=== PATIENT | female | born 1940 | race Caucasian/White ===

== ENCOUNTER 2017-05-11 06:44 | Day surgery (SDC) | payer MEDICARE ==
[~2017-05-11] VITALS: Ht 170.2 cm; Wt 58.5 kg
[~2017-05-11 06:44] MED LIST: ACETAMINOPHEN 325 MG TAB PO PRN; DEPA250T32 PO; MULT1TAB10 PO; VITA500T PO
[2017-05-11] MEDS ORDERED: OFLOXACIN 0.3 % (OCUFLOX) OPTH SOL 5ML OD ONE (07:00)
[2017-05-11] MEDS ORDERED: CYCLOPENTOLATE 2% OPHTH SOLN 2ML BTL OD ONE (07:00)
[2017-05-11] MEDS ORDERED: TROPICAMIDE 1% OPHTH SOLN 2ML OD ONE (07:00)
[2017-05-11] MEDS ORDERED: BSS with VANC/TOB/EPI for EYE CASES IR ONE (07:00)
[2017-05-11] MEDS ORDERED: LIDOCAINE 3.5 % 1ML OPHTH TOPICAL GEL OU ONE (07:00)
[2017-05-11] MEDS ORDERED: PHENYLEPHRINE 2.5% OPHTH SOL 2ML OD ONE (07:00)
[2017-05-11] MEDS ORDERED: LR 1,000 ML IV ONE (07:15)
[2017-05-11] MEDS ORDERED: MOXIFLOXACIN IN BSS 0.25MG/0.25ML INTRACAMERAL INJ (OR EYE ONLY)(J2280) As Ordered ONE (08:51)
[2017-05-11] MEDS ORDERED: TRIAMCINOLONE PRES FR 40 MG/ML 1ML(TRIESENCE)(OR EYE ONLY)(J3300 PER 1MG) As Ordered ONE (08:51)
[2017-05-11] MEDS ORDERED: LIDOCAINE 1% SDV 5 ML VIAL As Ordered ONE (08:51)
[2017-05-11] MEDS ORDERED: POVIDONE-IODINE 5% OPHTH PREP SOL 30ML As Ordered ONE (08:51)
[2017-05-11] MEDS ORDERED: HEALON DUET (HEALON 10MG/ML 0.55ML & HEALON ENDOCOAT 30MG/ML 0.85ML) As Ordered ONE (08:52)
[2017-05-11] MEDS ORDERED: AcetaZOLAMIDE 500 MG ER CAP PO ONE (09:00)
[2017-05-11] MEDS ORDERED: TRIMETHOBENZAMIDE 300 MG CAP PO PRN (09:00)
[2017-05-11] MEDS ORDERED: MIDAZOLAM INJ 2 MG/2 ML VIAL (J2250) As Ordered ONE (09:10)
[2017-05-11] MEDS ORDERED: fentaNYL 100 MCG/2 ML INJECTION (J3010) As Ordered ONE (09:10)
[2017-05-11 09:50] VITALS: BP 177/83
== END 2017-05-11 09:55 | disposition home or self-care (01) ==
LOC: M SDC 06:44
PROVIDERS: ATTEND Ophthalmology
DX: H26.9 Unspecified cataract (principal); R56.9 Unspecified convulsions; E78.00 Pure hypercholesterolemia, unspecified; I73.9 Peripheral vascular disease, unspecified; I34.8 Other nonrheumatic mitral valve disorders; I35.0 Nonrheumatic aortic (valve) stenosis; I71.6 Thoracoabdominal aortic aneurysm, without rupture; Z79.899 Other long term (current) drug therapy; Z90.710 Acquired absence of both cervix and uterus; Z78.0 Asymptomatic menopausal state
CPT/HCPCS: 66984; J2250; J2280; J3010; J3300; V2632

== ENCOUNTER → 2020-12-04 | Outpatient (CLI) | payer MEDICARE ==
[~2020-12-04] MED LIST changes: -ACETAMINOPHEN 325 MG TAB PO PRN; +VITA-243 PO; -VITA500T PO
--- NOTE | 2020-12-04 16:43 | REP ---
INDICATION: LEFT LEG SWELLING. COMPARISON: None. TECHNIQUE: Multiple ultrasonographic images of the deep venous structures of the bilateral lower extremity were obtained from the inguinal ligament to the ankle. Venous compression techniques, color doppler imaging, and augmentation techniques were also obtained where appropriate. As per the ACR guidelines the anterior tibial vein can not be effectively evaluated. Only compression techniques in the calf on the peroneal and posterior tibial veins was attempted/performed. FINDINGS: There is no abnormal echogenic material seen within any of the visualized deep venous structures that would suggest acute thrombosis. Coaptation is unremarkable throughout. Doppler interrogation shows an expected response to respiratory variability and augmentation in the thigh. Compression techniques in the calf showed no abnormality. The color flow images show what appears to be a normal vascular pattern throughout the thigh. IMPRESSION: There is no ultrasonographic evidence of deep venous thrombosis involving any of the visualized deep venous structures of the bilateral lower extremity as described above. <Electronically signed by Mario Sahni > 12/04/20 [id number]
[2020-12-04 18:29] LABS: BASO % 0.4 % (0.0-1.0); EOS # 0.2 10^3/uL (0.0-0.5); EOS % 3.1 % (0.0-3.0); HEMATOCRIT 41.6 % (36.0-47.0); HEMOGLOBIN 12.9 g/dl (12.0-15.5); LYMPH % 14.4 % (24.0-44.0); MEAN CORPUSCULAR HEMOGLOBIN 30.7 pg (27.0-33.0); MONO # 0.4 10^3/uL (0.0-0.8); MONO % 6.1 % (2.0-8.0); NEUTROPHILS # 5.4 10^3/uL (1.5-8.5); NEUTROPHILS % 75.6 % (36.0-66.0); PLATELET COUNT, AUTOMATED 206 10^3/uL (150-450); WHITE BLOOD COUNT 7.2 10^3/uL (4.0-10.0)
[2020-12-04 18:38] LABS: ALBUMIN 3.8 GM/DL (3.2-5.2); ALT/SGPT 29 U/L (12-78); BILIRUBIN,TOTAL 0.5 MG/DL (0.2-1.0); BLOOD UREA NITROGEN 22 MG/DL (7-18); CALCIUM LEVEL 9.6 MG/DL (8.8-10.2); CARBON DIOXIDE LEVEL 30 MEQ/L (21-32); CHLORIDE LEVEL 110 MEQ/L (98-107); CREATININE FOR GFR 0.78 MG/DL (0.55-1.30); FOLATE > 24.0 NG/ML (>5.4); FREE T4 1.04 NG/DL (0.76-1.46); GLOMERULAR FILTRATION RATE > 60.0 (>39); GLUCOSE, FASTING 81 MG/DL (70-100); POTASSIUM SERUM 4.3 MEQ/L (3.5-5.1); SODIUM LEVEL 145 MEQ/L (136-145); TOTAL PROTEIN 6.7 GM/DL (6.4-8.2); VITAMIN B12 LEVEL 882 PG/ML (247-911)
== END ==
LOC: M LAB 15:52
PROVIDERS: ATTEND Physician Assistant
DX: M79.89 Other specified soft tissue disorders (principal); L97.822 Non-pressure chronic ulcer of other part of left lower leg with fat layer exposed; R01.1 Cardiac murmur, unspecified; E53.8 Deficiency of other specified B group vitamins; R41.3 Other amnesia; I83.028 Varicose veins of left lower extremity with ulcer other part of lower leg

== ENCOUNTER → 2020-12-10 | Outpatient (CLI) | payer MEDICARE ==
--- NOTE | 2020-12-10 16:23 | REP ---
INDICATION: BENIGN PROSTATIC HYPERPLASIA WITH LOWER URINARY TR COMPARISON: None. TECHNIQUE: Left lower extremity arterial ultrasound and Doppler. FINDINGS: All numeric values represent peak systolic velocity in cm/SEC The ankle brachial index was not obtained. DINKEY ENGINE FIRER/FIREMAN: 456.1 monophasic with evidence of stenosis Profunda: 136 monophasic SFA proximal: 75.1 monophasic SFA mid: 34.7 monophasic SFA distal: 21.9 monophasic Popliteal: 12.9 monophasic LAURI proximal: 16.3 monophasic Tibioperoneal trunk: 23.4 monophasic CAR SALESPERSON proximal: 40.5 monophasic CAR SALESPERSON distal: 32.1 monophasic LAURI distal 16.3 monophasic Severe plaque formation was seen from the common femoral artery to the foot. Collateral circulation was seen at the popliteal artery. The patient would not allow for an ankle brachial index today. IMPRESSION: As above <Electronically signed by Mario Sahni > 12/10/20 0476
== END ==
LOC: M RAD 14:39
PROVIDERS: ATTEND Surgery
DX: L97.822 Non-pressure chronic ulcer of other part of left lower leg with fat layer exposed (principal)

== ENCOUNTER → 2020-12-17 | Outpatient (CLI) | payer MEDICARE | LOC: M CARPUL 12:55 | PROVIDERS: ATTEND Physician Assistant | DX: R01.1 Cardiac murmur, unspecified (principal) ==

== ENCOUNTER → 2020-12-23 | Outpatient (POV) | payer MEDICARE ==
[~2020-12-23] VITALS: Ht 170.2 cm; Wt 51.8 kg
[2020-12-23 09:56] VITALS: BP 123/74
--- NOTE | 2020-12-24 14:58 | IRCOV ---
[facility] IR Consult Office Visit IR Consult Office Visit DATE: Dec 23, 2020 REASON FOR CONSULTATION/CHIEF COMPLAINT: Nonhealing left lower extremity ulcer. HISTORY OF PRESENT ILLNESS: 80-year-old nondiabetic, female presents with left lower extremity medial tibial ulcer. She states this started in October 2020. At that time, they saw Dr. Platt, and report that he performed an ultrasound and told her she has bad circulation in her left leg. She was prescribed Silvadene which she used, but the ulcer didn't heal. She then followed up with her PCP Dr. Max's office, who referred her to Dr. Davis for wound care. She is now under the care of Dr. Toribio for her wound and is referred for arterial evaluation. Patient reports she is on her feet all day. She denies intermittent claudication. However she does report left lower extremity rest pain with elevation at night. She does report left lower extremity swelling. No prior amputations, gangrene, arterial thrombosis, arterial intervention and/or stenting in the lower extremities. No chest pain, shortness of breath, orthopnea or paroxysmal nocturnal dyspnea. Patient denies prior heart attack or stroke. She's an ex-smoker and she quit 25 years ago. She is on 81 mg aspirin daily. ALLERGIES: Please see below. HOME MEDICATIONS: Please see below. 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 SOCIAL HISTORY: Ex-smoker. Quit 25 years ago. Denies alcohol or drugs. REVIEW OF SYSTEMS: Otherwise negative. PHYSICAL EXAMINATION: VITAL SIGNS: Please see below. GENERAL APPEARANCE: Appears well. Comfortable at rest. HEENT: No scleral icterus. RESPIRATORY: Symmetric breath sounds. CARDIOVASCULAR: Normal rate. Systolic murmur. ABDOMEN: Soft nontender. EXTREMITIES: Left lower extremity: Ulceration over the medial mid tibia. Lower extremity skin is red, thickened, warm to touch. There is purplish chronic discoloration of the feet. There are spider veins throughout the lower extremity. Femoral pulse 2+ popliteal pulse 1+ AT/ PT negative. Mid medial tibial ulcer nontender, covered with foam. Sensation intact. motor 4 out of 5. edema to the thigh. Right lower extremity: skin is red, thickened, warm to touch. There is purplish chronic discoloration of the feet. There are spider veins throughout the lower extremity. Femoral pulse 2+ popliteal pulse 1+ AT/PT 1+ sensation intact. motor 4 out of 5. edema to the thigh. No ulcers. No gangrene. NEUROLOGICAL: Alert and oriented. PSYCHIATRIC: Appropriate to circumstance. LABORATORY DATA: 12/04/2020 hemoglobin 12.9 hematocrit 41.6 WBC 7.2 platelets 206 sodium 145 potassium 4.3 BUN 22 creatinine 0.78 GFR greater than 60 Imaging: I personally reviewed the left lower extremity arterial ultrasound performed 12/10/2020. There are monophasic waveforms from the left groin down. There is atherosclerotic disease with poor flow in the SFA and popliteal artery and distal parvus tardus flow. ASSESSMENT/PLAN: 80-year-old nondiabetic female presents with nonhealing left lower extremity ulcers and rest pain. She has an abnormal ultrasound of the left lower extremity arterial system. I agree she would benefit from angiography and/or angioplasty and stenting if needed. We discussed the risks and benefits of the procedure and patient agreed to proceed. We'll schedule the patient for left lower extremity angiography and intervention. I will also order a venous reflux study of her left lower extremity to evaluate for any saphenous vein incompetency and resultant venous hypertension I spent 30 minutes reviewing patient's records, imaging and in consultation with the patient. Thank you for this referral. Cc Dr. Toribio CC Renee GIBSON Allergies Coded Allergies: No Known Allergies (Unverified , 05/11/17) Home Medications Scheduled Ascorbic Acid (Vitamin C), 500 MG PO DAILY, (Reported) Divalproex Sodium (Depakote), 250 MG PO BID, (Reported) Multivitamins (Multivitamin Adults), 1 TAB PO DAILY, (Reported) VS, I&O, 24H, Fishbone Vital Signs/I&O Vital Signs Date Time Temp Pulse Resp B/P (MAP) Pulse Ox O2 Delivery O2 Flow Rate FiO2 12/23/20 09:56 97.3 74 18 123/74 (90) 98 Room Air BELLE MURPHY MD Dec 24, 2020 14:58
== END ==
LOC: M IRPOV 09:49
PROVIDERS: ATTEND Radiology Diagnostic Radiology
DX: I70.222 Atherosclerosis of native arteries of extremities with rest pain, left leg (principal); L97.529 Non-pressure chronic ulcer of other part of left foot with unspecified severity; E53.8 Deficiency of other specified B group vitamins; R41.81 Age-related cognitive decline; Z87.891 Personal history of nicotine dependence; Z90.710 Acquired absence of both cervix and uterus

== ENCOUNTER → 2021-01-07 | Outpatient (CLI) | payer MEDICARE ==
[~2021-01-07] MED LIST changes: +ASPI81CH33 PO; +ISOVUE-300 61% 50ML VIAL As Ordered ONE; +LIDOCAINE 1% MDV 20ML VIAL As Ordered ONE; +MIDAZOLAM INJ 2MG/2ML VIAL (J2250 PER 1MG) As Ordered ONE; +NS 1,000 ML IV SCH; +diphenhydrAMINE 50MG/ML VIAL (J1200) As Ordered ONE; +fentaNYL 100 MCG/2 ML INJECTION (J3010) As Ordered ONE
[2021-01-07 15:43] LABS: HEMATOCRIT 41.5 % (36.0-47.0); HEMOGLOBIN 13.5 g/dl (12.0-15.5); MEAN CORPUSCULAR HEMOGLOBIN 31.6 pg (27.0-33.0); MEAN CORPUSCULAR HGB CONC 32.5 g/dl (32.0-36.5); MEAN CORPUSCULAR VOLUME 97.2 fl (80.0-96.0); PLATELET COUNT, AUTOMATED 179 10^3/uL (150-450); RED BLOOD COUNT 4.27 10^6/uL (4.00-5.40); WHITE BLOOD COUNT 5.3 10^3/uL (4.0-10.0)
[2021-01-07 16:04] LABS: BLOOD UREA NITROGEN 22 MG/DL (7-18); CARBON DIOXIDE LEVEL 28 MEQ/L (21-32); CHLORIDE LEVEL 109 MEQ/L (98-107); CREATININE FOR GFR 0.72 MG/DL (0.55-1.30); GLOMERULAR FILTRATION RATE > 60.0 (>39); GLUCOSE, FASTING 81 MG/DL (70-100); POTASSIUM SERUM 3.9 MEQ/L (3.5-5.1); SODIUM LEVEL 139 MEQ/L (136-145)
[2021-01-07 16:25] VITALS: BP 143/81
--- NOTE | 2021-01-08 08:24 | IRHP ---
[facility] IR Pre-Procedure H & P General Date of Service: Jan 07, 2021 Procedure: Same Day Surgery Interval History and Physical I have seen the patient and reviewed last H & P performed within 30 days. There is no significant interval change. History of Present Illness Chief Complaint The patient is a 80-year-old female admitted with a reason for visit of PAD. PRE-PROCEDURE DIAGNOSIS: PAD HEART: Normal rate. LUNGS: Normal breathing at rest. ASA Classification ASA Classification: III-Severe systemic dis. Mallampati Score: II NPO: Yes Problems with prior sedation: No Obstructive Sleep Apnea: No Plan moderate sedation Allergies Coded Allergies: No Known Allergies (Unverified , 05/11/17) Home Medications Scheduled Ascorbic Acid (Vitamin C), 500 MG PO DAILY, (Reported) Aspirin (Aspirin), 1 TAB PO DAILY, (Reported) Multivitamins (Multivitamin Adults), 1 TAB PO DAILY, (Reported) Discontinued Medications Divalproex Sodium (Depakote), 250 MG PO BID, (Reported) Discontinued Reason: Pt states not taking VS, I&O, 24H, Fishbone Vital Signs/I&O Vital Signs Date Time Temp Pulse Resp B/P (MAP) Pulse Ox O2 Delivery O2 Flow Rate FiO2 01/07/21 16:25 75 18 100 Room Air 01/07/21 12:40 2.0 01/07/21 10:08 97.8 Laboratory Data 24H LABS Laboratory Tests 2 01/07/21 15:27: Nucleated Red Blood Cells % (auto) 0.0, Anion Gap 2L, Glomerular Filtration Rate > 60.0, Calcium Level 9.0 CBC/BMP Laboratory Tests 01/07/21 15:27 BELLE MURPHY MD Jan 08, 2021 08:24
--- NOTE | 2021-01-08 11:53 | IRPON ---
IR Postoperative Note Date Of Procedure: Jan 07, 2021 Time Of Procedure: 16:00 IR Postoperative Note IR Left leg angiogram. IR Left below-knee runoff arteriogram. IR Ultrasound-guided right common femoral artery access. IR Moderate sedation. Clinical Information:Nonhealing left lower extremity wound. Left lower extremity rest pain. Physician: Dr. Lainez. Procedure: The patient was advised of the benefits, risks, and alternatives of the procedure and informed consent was obtained. A time out was performed with verification of the patient's name, MRN, site of procedure, and type of procedure to be performed. The patient was positioned in the supine position on the angiographic table. The site was prepped and draped in the usual sterile fashion. Moderate sedation was performed by the physician including the presence of an independent trained RN, who assisted in monitoring the patient's level of consci ousness and physiological status. Following the administration of fentanyl and Versed, the physician spent 90 minutes of continuous [id number] time with the patient. A health administration teacher radiograph reveals calcified tortuous vasculature. Ultrasound of the right groin demonstrates patent, calcified, right common femoral artery. Lidocaine was used for local anesthesia. The right common femoral artery was accessed, under ultrasound guidance with a microintroducer set. A short 0.018" [place] wire was inserted under fluoroscopic guidance and the needle was exchanged for a 4 Fr microintroducer sheath. The guidewire and dilator were removed, a 0.035" Bentson wire was advanced under fluoroscopy guidance and placed into the abdominal aorta. A 6 Fr sheath was placed over the wire. An Omni flush catheter was advanced over the wire, under fluoroscopy guidance and used to catheterize the infrarenal abdominal aorta. A pelvic arteriogram was performed. This demonstrates extreme tortuosity of the infrarenal abdominal aorta and aortic bifurcation, bilateral common iliac and external iliac arteries. Patent bilateral common iliac, internal iliac and external iliac arteries. There is plaque in the left common femoral artery. Patent bilateral superficial femoral and profunda femoris. Angiography further down the left leg was performed. This demonstrates patent proximal and mid superficial femoral artery. Complete occlusion of the distal superficial femoral artery, proximal and mid popliteal artery. Numerous collaterals around the knee reconstitute the distal popliteal artery. Below-knee runoff arteriogram was then performed and this demonstrates patent tibia peroneal trunk, posterior tibial artery and peroneal artery coursing into the left foot. This multifocal severe stenosis in the history of tibial artery and peroneal artery. The anterior tibial artery is patent proximally however there is multifocal long segment stenosis in the mid and distal left anterior tibial artery. There is distal reconstitution of dorsalis pedis via history tibial branches. Very little contribution to the left foot from the anterior tibial artery. The catheter, wire and sheath were removed. A 6 Croat[place] Mynx device was used to close the right groin arteriotomy. Pressure held and hemostasis achieved. A st erile dressing was applied to the site. The patient tolerated the procedure well and was returned to the PRU in stable condition. EBL: < 5 mL. Complications:None. Impression: 1. Left leg angiogram demonstrates extreme tortuosity of the aortic bifurcation, bilateral common iliac and external iliac arteries. 2. Patent pelvic inflow to the left lower extremity. 3. Complete occlusion of the distal SFA and popliteal artery which will require recanalization and stenting behind the knee. Stenting behind the knee does run a risk of stent fracture, therefore there is a certain supera stent which is preferred for placement behind the knee. This will be special ordered for the patient. 4. Below-knee arterial runoff demonstrates multifocal severe stenosis in the posterior tibial artery, peroneal artery and occlusion of the mid and distal anterior tibial artery. 5. Patient will be brought back for ipsilateral antegrade access, distal SFA/ popliteal recanalization and popliteal artery stenting. 6. After that, patient will need further intervention with below-knee posterior tibial artery and anterior tibial artery angioplasty. Thank you for this referral. Cc BELLE Mendoza MD Jan 08, 2021 11:53
== END ==
LOC: M IRPRO 09:18
PROVIDERS: ATTEND Radiology Diagnostic Radiology
DX: I70.249 Atherosclerosis of native arteries of left leg with ulceration of unspecified site (principal); I70.222 Atherosclerosis of native arteries of extremities with rest pain, left leg; I70.92 Chronic total occlusion of artery of the extremities; L97.829 Non-pressure chronic ulcer of other part of left lower leg with unspecified severity; I77.1 Stricture of artery; E53.8 Deficiency of other specified B group vitamins; Z79.82 Long term (current) use of aspirin; Z87.891 Personal history of nicotine dependence
CPT/HCPCS: 36200; 36415; 75630; 80048; 85027; 99152; 99153; C1760; C1769; C1887; C1894; J1644; J2250; J3010; Q9967

== ENCOUNTER → 2021-01-26 | Outpatient (CLI) | payer MEDICARE ==
[~2021-01-26] MED LIST changes: -ISOVUE-300 61% 50ML VIAL As Ordered ONE; -LIDOCAINE 1% MDV 20ML VIAL As Ordered ONE; -MIDAZOLAM INJ 2MG/2ML VIAL (J2250 PER 1MG) As Ordered ONE; -NS 1,000 ML IV SCH; -diphenhydrAMINE 50MG/ML VIAL (J1200) As Ordered ONE; -fentaNYL 100 MCG/2 ML INJECTION (J3010) As Ordered ONE
--- NOTE | 2021-01-26 12:28 | REP ---
INDICATION: VENOUS HTN COMPARISON: None. TECHNIQUE: Real time compression and duplex Doppler interrogation of the left lower extremity deep venous system is performed, including the right common femoral vein.Compression of the left peroneal and posterior tibial veins is performed. Evaluation for venous reflux is performed. FINDINGS: The left common femoral, superficial femoral and popliteal veins are fully compressible with transducer pressure and demonstrate normal spontaneous and phasic flow, without evidence of deep venous thrombosis.The right common femoral vein demonstrates no thrombus.The left peroneal and posterior tibial veins could not be visualized due to edema. Evaluation for venous reflux is performed with the bed tipped, the patient cannot stand. The patient has had a prior resection of the left greater saphenous vein. Lesser saphenous vein does demonstrate reflux for a duration of 2.6 seconds, AP diameter is 4 mm. There is no reflux in any portion of the deep vein system. IMPRESSION: No evidence of deep venous thrombosis of the left lower extremity femoral popliteal venous status post resection left greater saphenous vein 1974. There is reflux in the lesser saphenous vein. <Electronically signed by Roger Cronin > 01/26/21 0570
== END ==
LOC: M RAD 11:15
PROVIDERS: ATTEND Radiology Diagnostic Radiology
DX: I87.309 Chronic venous hypertension (idiopathic) without complications of unspecified lower extremity (principal); I87.2 Venous insufficiency (chronic) (peripheral); Z86.711 Personal history of pulmonary embolism

== ENCOUNTER → 2021-02-03 | Outpatient (POV) | payer MEDICARE ==
[~2021-02-03] VITALS: Ht 170.2 cm; Wt 51.8 kg
[2021-02-03 09:50] VITALS: BP 122/59
--- NOTE | 2021-02-05 10:29 | IRPN ---
[facility] IR Progress Note IR Progress Note DATE: Feb 03, 2021 FOLLOW-UP: Patient is status post left lower extremity distal SFA and proximal popliteal artery recanalization with angioplasty. Patient states she is doing well, after the procedure. No pain or swelling at the groin access site. She was started on aspirin and Plavix after the procedure. Patient's daughter describes, increased bruising of the arms on this dual regimen. She also describes, that when she tried to quickly sit down on the toilet the other night, she bruised her left buttock. Patient continues with wound care. She denies rest pain at night. ON EXAMINATION: Groin access site healed. No bruising, no mass, no hematoma. Left lower extremity warm, pink and well perfused. There are bilateral lower extremity bulging varicose veins. Bilateral lower extremity edema. Increased bruising on bilateral arms. Bruising at the left buttock from recent trauma. Patient weightbearing and moving all 4 limbs. Imaging: I personally reviewed the ultrasound lower extremity venous reflux study performed 01/26/2021. This does demonstrate left lesser saphenous vein reflux. Patient had prior left greater saphenous vein stripping. IMPRESSION: Doing well status post left lower extremity angiography, left distal SFA and popliteal artery recanalization with improvement of flow to the left foot. Patient does have left lesser saphenous vein reflux and this may be contributing to her ulcer and leg swelling. We discussed that, if her wound persists after several weeks, we may consider left lesser saphenous vein EVLT. Patient will touch base with us, regarding this. Given her increase arm bruising on the dual aspirin and Plavix therapy, my suggestion at present would be to take Plavix on Mondays, Wednesdays and Fridays. If patient continues to get bruising or and/or bleeding, patient may stop Plavix. I discussed this with her daughter in detail. Thank you for this referral. Cc Dr. Toribio Allergies Coded Allergies: No Known Allergies (Unverified , 05/11/17) VS,Fishbone, I+O VS, Fishbone, I+O Vital Signs Date Time Temp Pulse Resp B/P (MAP) Pulse Ox O2 Delivery O2 Flow Rate FiO2 02/03/21 09:50 96.3 77 18 122/59 (80) 98 Room Air BELLE MURPHY MD Feb 05, 2021 10:29
== END ==
LOC: M IRPOV 09:37
PROVIDERS: ATTEND Radiology Diagnostic Radiology
DX: Z48.812 Encounter for surgical aftercare following surgery on the circulatory system (principal); I70.202 Unspecified atherosclerosis of native arteries of extremities, left leg; R60.0 Localized edema

== ENCOUNTER 2021-02-27 08:15 | Emergency (ER) | payer MEDICARE ==
[~2021-02-27] VITALS: Ht 167.6 cm; Wt 51.8 kg
[2021-02-27 08:23] VITALS: BP 165/92
--- NOTE | 2021-02-27 09:01 | REP ---
INDICATION: leg edema eval for pulm edema. COMPARISON: None. TECHNIQUE: Single portable AP view of the chest was performed. FINDINGS: There is no acute infiltrate or pulmonary edema. Lungs are clear. The cardiac silhouette is mildly prominent and unchanged. The mediastinal silhouette is unremarkable. There is slight elevation of the left hemidiaphragm. The visualized osseous structures are intact. IMPRESSION: No acute pulmonary disease. <Electronically signed by Roger Cronin > 02/27/21 0815
[2021-02-27 09:08] LABS: BASO % 0.4 % (0.0-1.0); EOS # 0.1 10^3/uL (0.0-0.5); EOS % 1.9 % (0.0-3.0); HEMATOCRIT 41.9 % (36.0-47.0); HEMOGLOBIN 13.2 g/dl (12.0-15.5); LYMPH # 1.1 10^3/uL (1.5-5.0); LYMPH % 16.4 % (24.0-44.0); MEAN CORPUSCULAR HEMOGLOBIN 30.7 pg (27.0-33.0); MEAN CORPUSCULAR HGB CONC 31.5 g/dl (32.0-36.5); MEAN CORPUSCULAR VOLUME 97.4 fl (80.0-96.0); MONO # 0.4 10^3/uL (0.0-0.8); MONO % 6.5 % (2.0-8.0); NEUTROPHILS % 74.4 % (36.0-66.0); PLATELET COUNT, AUTOMATED 234 10^3/uL (150-450); WHITE BLOOD COUNT 6.8 10^3/uL (4.0-10.0)
--- NOTE | 2021-02-27 09:36 | REP ---
INDICATION: LLE edema r/o dvt. COMPARISON: Comparison prior study January 26, 2021. TECHNIQUE: Left {lower extremity duplex venous scanning is performed from the groin to the ankle level. FINDINGS: The deep veins are anechoic and fully compressible from the groin to the popliteal fossa in the left lower extremity. Color flow imaging is homogeneous. Spectral Doppler interrogation demonstrates intact respiratory variation in flow and normal manual augmentation of flow. There is no evidence of deep vein thrombosis above the knee. There is no evidence of DVT in the visualized calf veins. The distal calf veins could not be seen due to a wound. There is a Trimble's cyst in the posterior popliteal soft tissues measuring 2.2 cm in greatest diameter. Doppler interrogation of the contralateral common femoral vein shows normal symmetric respiratory phasicity. IMPRESSION: No evidence of DVT in the left lower extremity femoropopliteal veins. No DVT in the visible portions of the calf veins. <Electronically signed by Patrice Jasso > 02/27/21 0933
[2021-02-27 11:15] LABS: ALBUMIN 3.4 GM/DL (3.2-5.2); ALT/SGPT 21 U/L (12-78); BILIRUBIN,DIRECT 0.1 MG/DL (0.0-0.2); BILIRUBIN,TOTAL 0.6 MG/DL (0.2-1.0); BLOOD UREA NITROGEN 18 MG/DL (7-18); CALCIUM LEVEL 9.2 MG/DL (8.8-10.2); CARBON DIOXIDE LEVEL 31 MEQ/L (21-32); CHLORIDE LEVEL 105 MEQ/L (98-107); CPK CREATINE PHOSPHOKINASE 117 U/L (26-192); CREATININE FOR GFR 0.52 MG/DL (0.55-1.30); FREE T4 1.01 NG/DL (0.76-1.46); GLOMERULAR FILTRATION RATE > 60.0 (>39); GLUCOSE, FASTING 83 MG/DL (70-100); MB/CK RELATIVE INDEX 2.56 (< OR =4); NT-PRO BNP 603 PG/ML (<450); POTASSIUM SERUM 5.5 MEQ/L (3.5-5.1); SODIUM LEVEL 136 MEQ/L (136-145); TOTAL PROTEIN 6.8 GM/DL (6.4-8.2); TROPONIN I < 0.02 NG/ML (< 0.10)
--- NOTE | 2021-02-27 11:42 | ECGEPIP ---
[facility] - ED Test Date: 2021-02-27 Pat Name: ABILIO MOORE Department: Room: - Gender: Female Career Technical Counselor: MARCO : 1940 Requested By: JOHNNY Mcmillan Order Number: [id number] Reading MD: Miguelina Nogueira Measurements Intervals [place] Rate: 63 P: 3 SD: 170 QRS: 78 QRSD: 158 T: 58 QT: 460 QTc: 470 Interpretive Statements Normal sinus rhythm Left atrial enlargement Right bundle branch block Anteroseptal infarct , age undetermined, clinical correlation no prior Electronically Signed on 02-27-2021 11:42:45 EDT by Miguelina Nogueira
== END 2021-02-27 12:08 | disposition home or self-care (01) ==
LOC: M ED 08:15
DX: M71.22 Synovial cyst of popliteal space [Baker], left knee (principal); R22.42 Localized swelling, mass and lump, left lower limb; R41.3 Other amnesia; D51.9 Vitamin B12 deficiency anemia, unspecified; Z79.82 Long term (current) use of aspirin; Z87.891 Personal history of nicotine dependence; Z87.2 Personal history of diseases of the skin and subcutaneous tissue

== ENCOUNTER → 2021-03-17 | Outpatient (POV) | payer MEDICARE ==
[~2021-03-17] VITALS: Ht 167.6 cm; Wt 53.6 kg
[2021-03-17 08:50] VITALS: BP 135/91
--- NOTE | 2021-03-18 11:35 | IRPN ---
[facility] IR Progress Note IR Progress Note DATE: Mar 17, 2021 FOLLOW-UP: Patient with known arterial disease and lesser saphenous venous reflux, presents with worsening left lower extremity, wound located on her otero. This is associated with left lower extremity swelling and heaviness. She recently underwent left lower extremity angiography with me, where she had popliteal artery recanalization and revascularization. She remains on baby asp irin. Her Plavix was stopped due to extreme bruising. ON EXAMINATION: Left lower extremity: edema to the thigh. Skin stigmata and changes of venous hypertension. Nontender wound on the mid left lower extremity otero. Left lower extremity warm to touch. Color otherwise normal. DP/PT 1+. Popliteal 1+. Motor and sensation intact. Right lower extremity: Color and temperature normal. No edema. No ulcer. Imaging: I personally reviewed her left lower extremity venous reflux study performed 01/26/2021. There is dilated left lesser saphenous vein with greater than 0.5 seconds of reflux, associated with varicosities along the left lower extremity. IMPRESSION: 80-year-old female with both arterial and venous disease, now status post left lower extremity angiography and popliteal artery recanalization. Her foot examination today supports successful arterial revascularization and continued patency. Her clinical examination and ulcer distribution, now suggest to me that the lesser saphenous vein reflux is contributing to her nonhealing. We discussed the risks and benefits of EVLT therapy and patient is willing to proceed. We have scheduled the patient for left lower extremity LSV EVLT. Thank you for this referral. Cc Elly Reyes PA-C Allergies Coded Allergies: No Known Allergies (Unverified , 05/11/17) VS,Fishbone, I+O VS, Fishbone, I+O Vital Signs Date Time Temp Pulse Resp B/P (MAP) Pulse Ox O2 Delivery O2 Flow Rate FiO2 03/17/21 08:50 97.4 68 20 135/91 (106) 100 Room Air BELLE MURPHY MD Mar 18, 2021 11:35
== END ==
LOC: M IRPOV 08:44
PROVIDERS: ATTEND Radiology Diagnostic Radiology
DX: I70.248 Atherosclerosis of native arteries of left leg with ulceration of other part of lower leg (principal); L97.829 Non-pressure chronic ulcer of other part of left lower leg with unspecified severity; I87.2 Venous insufficiency (chronic) (peripheral)

== ENCOUNTER → 2021-03-26 | Outpatient (CLI) | payer MEDICARE ==
[~2021-03-26] MED LIST changes: +LIDOCAINE 1% MDV 20ML VIAL As Ordered ONE; +LIDOCAINE 2% MDV 20ML VIAL As Ordered ONE; +MIDAZOLAM INJ 2MG/2ML VIAL (J2250 PER 1MG) As Ordered ONE; +NS 1,000 ML IV SCH; +PROMETHAZINE INJ 25 MG/ML VIAL (J2550) As Ordered ONE; +diphenhydrAMINE 50MG/ML VIAL (J1200) As Ordered ONE; +fentaNYL 100 MCG/2 ML INJECTION (J3010) As Ordered ONE
--- NOTE | 2021-03-26 14:13 | IRHP ---
[facility] IR Pre-Procedure H & P General Date of Service: Mar 26, 2021 Procedure: Same Day Surgery Interval History and Physical I have seen the patient and reviewed last H & P performed within 30 days. There is no significant interval change. History of Present Illness Chief Complaint The patient is a 80-year-old female admitted with a reason for visit of Lt Leg Venous Ulcer. PRE-PROCEDURE DIAGNOSIS: Left leg venous ulcer HEART: Normal rate. LUNGS: Normal breathing at rest. ASA Classification ASA Classification: III-Severe systemic dis. Mallampati Score: II NPO: Yes Problems with prior sedation: No Obstructive Sleep Apnea: No Plan moderate sedation Allergies Coded Allergies: No Known Allergies (Unverified , 05/11/17) Home Medications Scheduled Aspirin (Aspirin), 1 TAB PO DAILY, (Reported) Multivitamins (Multivitamin Adults), 1 TAB PO DAILY, (Reported) VS, I&O, 24H, Fishbone Vital Signs/I&O Vital Signs Date Time Temp Pulse Resp B/P (MAP) Pulse Ox O2 Delivery O2 Flow Rate FiO2 03/26/21 13:55 60 18 100 Nasal Cannula 2.0 03/26/21 12:30 97.9 BELLE MURPHY MD Mar 26, 2021 14:13
--- NOTE | 2021-03-26 15:28 | IRPON ---
IR Postoperative Note Date Of Procedure: Mar 26, 2021 Time Of Procedure: 15:25 IR Postoperative Note IR Endovenous laser treatment for leg varicose vein. IR Ultrasound of the left leg. IR Tumescent anesthesia under ultrasound guidance. IR Moderate sedation. Clinical information: Left lower extremity nonhealing venous ulcer. Incompetent left lesser saphenous vein with greater than 0.5 seconds of reflux. Physician: Dr. Lainez. Procedure: The patient was advised of the benefits, risks and alternatives of the procedure and informed consent was obtained. The time-out was performed with verification of the patient's name, MRN, site of procedure and type of procedure to be performed. The patient was positioned in the supine position on the table. The site was prepped and draped in the usual sterile fashion. Moderate sedation was performed by the physician including the presence of an independent trained RN who assisted in monitoring the patient's level of consciousness and physiologic status. Following the administration of fentanyl and Versed , the physician spent 60 minutes of continuous face to face time with the patient. Ultrasound of the left lower extremity demonstrates dilated lesser saphenous vein with greater than 0.5 seconds reflux. The access site was identified with ultrasound and anesthetized with lidocaine. The left lesser saphenous vein was accessed under ultrasound guidance at the ankle, using a micro introducer needle. An 018 cope wire was advanced into the vein. Incision at the access site was made using a scalpel. The needle was removed and an access catheter was advanced over the wire under ultrasound guidance to > 2.5 centimeters from the popliteal junction. The wire was removed and the laser fiber was advanced through the catheter under ultrasound guidance and positioned with the tip located 2.5 cm from the popliteal junction. Tumescent anesthesia was then injected under ultrasound guidance along the entire length of the vein to be treated. Repeat ultrasound of the popliteal junction was used to confirm positioning of the tip of the laser back greater than 2.5 cm from junction. The patient was positioned in Trendelenburg. The laser was then activated and under ultrasound guidance used to laser the Left lesser saphenous vein back to the access point. Simultaneous manual compression was applied to the treated vein. Treatment: Wattage: 7. Time: 101 seconds. Pullback rate 1 cm every 7 seconds. Total Energy deposited 710 joules. Treatment 50 joules per centimeter of vein. The fiber, catheter and sheath were removed, pressure held and hemostasis achieved. A sterile dressing was applied to the site. Compression dressing was then applied to the leg, from ankle to groin. The patient tolerated the procedure well and was returned to the PRU in stable condition. EBL: < 5 ml. Complications: None. Impression: 1. Ultrasound demonstrates dilated left lesser saphenous vein with greater than 0.5 seconds reflux. 2. Successful left lesser saphenous vein ablation with laser. 3. Compression dressing applied from ankle to groin. Patient to return in 1 week for follow up ultrasound at which time the compression dressing will be switched to stockings. Thank you this referral. Cc SHANELL Ponce SIMA MD Mar 26, 2021 15:28
[2021-03-26 16:30] VITALS: BP 168/88
== END ==
LOC: M IRPRO 12:06
PROVIDERS: ATTEND Radiology Diagnostic Radiology
DX: I87.312 Chronic venous hypertension (idiopathic) with ulcer of left lower extremity (principal); L97.929 Non-pressure chronic ulcer of unspecified part of left lower leg with unspecified severity; Z79.82 Long term (current) use of aspirin
CPT/HCPCS: 36465; 36478; 76940; 99152; 99153; J2250; J3010

== ENCOUNTER → 2021-04-03 | Outpatient (CLI) | payer MEDICARE ==
[~2021-04-03] MED LIST changes: -LIDOCAINE 1% MDV 20ML VIAL As Ordered ONE; -LIDOCAINE 2% MDV 20ML VIAL As Ordered ONE; -MIDAZOLAM INJ 2MG/2ML VIAL (J2250 PER 1MG) As Ordered ONE; -NS 1,000 ML IV SCH; -PROMETHAZINE INJ 25 MG/ML VIAL (J2550) As Ordered ONE; -diphenhydrAMINE 50MG/ML VIAL (J1200) As Ordered ONE; -fentaNYL 100 MCG/2 ML INJECTION (J3010) As Ordered ONE
--- NOTE | 2021-04-03 12:46 | REP ---
INDICATION: S/P ABLASTION LT LEG ? DVT COMPARISON: 02/27/2021 TECHNIQUE: Cronin scale and color Doppler evaluation using linear high frequency transducer. FINDINGS: Ultrasound examination of the left lower extremity deep venous structures from the common femoral vein through the popliteal vein demonstrates normal compressibility flow and wave patterns in response to respiration and augmentation. There is no evidence for deep venous thrombosis. Calf veins were incompletely evaluated due to edema. Contralateral CFV is patent and normal. 3.9 x 1.6 x 3.3 cm simple fluid collection identified in the right groin. IMPRESSION: No evidence for deep venous thrombosis. Ovoid simple fluid collection in the right groin. <Electronically signed by Theo Arenas > 04/03/21 [id number]
== END ==
LOC: M RAD 11:54
PROVIDERS: ATTEND Radiology Diagnostic Radiology
DX: Z86.711 Personal history of pulmonary embolism (principal)

== ENCOUNTER → 2021-04-14 | Outpatient (POV) | payer MEDICARE ==
[~2021-04-14] VITALS: Ht 167.6 cm; Wt 53.1 kg
[2021-04-14 07:56] VITALS: BP 135/79
--- NOTE | 2021-04-16 09:59 | IRPN ---
[facility] IR Progress Note IR Progress Note DATE: Apr 14, 2021 FOLLOW-UP: Status post left lower extremity lesser saphenous vein EVLT. Patient reports the left leg is swollen. ON EXAMINATION: Left lower extremity appears swollen. Warm to touch. Imaging: I personally reviewed the 1 week post EVLT follow-up ultrasound. There is no DVT. Lesser saphenous vein is appropriately treated. IMPRESSION: Good result status post left lesser saphenous vein EVLT therapy. I have advised the patient to elevate the legs as often as able for 7 to 10 days and use ibuprofen 400 mg to 600 mg 3 times daily. Continue using compression s ocks. Follow-up in 2 weeks. Thank you for this referral. CC Dr. Toribio Allergies Coded Allergies: No Known Allergies (Unverified , 05/11/17) VS,Fishbone, I+O VS, Fishbone, I+O Vital Signs Date Time Temp Pulse Resp B/P (MAP) Pulse Ox O2 Delivery O2 Flow Rate FiO2 04/14/21 07:56 97.0 75 20 135/79 (97) 97 Room Air BELLE MURPHY MD Apr 16, 2021 09:59
== END ==
LOC: M IRPOV 07:43
PROVIDERS: ATTEND Radiology Diagnostic Radiology
DX: Z48.812 Encounter for surgical aftercare following surgery on the circulatory system (principal)

== ENCOUNTER → 2021-08-12 | Outpatient (REF) | payer MEDICARE | LOC: M SFHCADAM 15:57 | PROVIDERS: ATTEND Physician Assistant | DX: R05.9 Cough, unspecified (principal) ==

== ENCOUNTER 2022-04-15 08:28 | Emergency (ER) | payer MEDICARE ==
[~2022-04-15] VITALS: Ht 170.2 cm; Wt 53.6 kg
[2022-04-15] MEDS ORDERED: MORPHINE 2 MG/ML 1ML VIAL IV ONE ×2 (09:40→11:05)
[2022-04-15] MEDS ORDERED: ONDANSETRON 4MG 2ML VIAL IV ONE (09:40)
[2022-04-15] MEDS ORDERED: BOOSTRIX/ADACEL VACCINE (DIPHTH/PERTUSS/ACELL/TETANUS) 0.5ML SYR IM ONE (11:10)
[2022-04-15 12:20] LABS: RSV AMPLIFICATION NEGATIVE (NEGATIVE)
[2022-04-15] MEDS ORDERED: TRAM50TA2 PO (12:43)
[2022-04-15 13:00] VITALS: BP 120/67
== END 2022-04-15 13:18 | disposition home or self-care (01) ==
LOC: EDBD 08:28 → M ED 08:28
DX: S42.351A Displaced comminuted fracture of shaft of humerus, right arm, initial encounter for closed fracture (principal); S00.01XA Abrasion of scalp, initial encounter; W01.0XXA Fall on same level from slipping, tripping and stumbling without subsequent striking against object, initial encounter; F17.200 Nicotine dependence, unspecified, uncomplicated; Z79.82 Long term (current) use of aspirin; Z79.899 Other long term (current) drug therapy; Y92.009 Unspecified place in unspecified non-institutional (private) residence as the place of occurrence of the external cause; Y93.9 Activity, unspecified; Y99.9 Unspecified external cause status
CPT/HCPCS: 70450; 73060; 87631; 90471; 90715; 96374; 96375; 99284; J2270; J2405

== ENCOUNTER → 2022-04-16 | Outpatient (CLI) | payer MEDICARE ==
[~2022-04-16] MED LIST changes: +TRAM50TA2 PO
== END ==
LOC: M PLAIMG 12:21
PROVIDERS: ATTEND Orthopaedic Surgery Hand Surgery
DX: S42.47 Transcondylar fracture of humerus (principal)

== ENCOUNTER → 2022-04-20 | Outpatient (CLI) | payer MEDICARE ==
[~2022-04-20] MED LIST changes: +ACET-907 PO; +MV-M1TAB13 PO
== END ==
LOC: M LABSMTC 09:52
PROVIDERS: ATTEND Anesthesiology
DX: Z20.828 Contact with and (suspected) exposure to other viral communicable diseases (principal); Z11.59 Encounter for screening for other viral diseases

== ENCOUNTER 2022-04-21 07:38 | Day surgery (SDC) | payer MEDICARE ==
[~2022-04-21] VITALS: Ht 165.1 cm; Wt 54.3 kg
[2022-04-21] MEDS ORDERED: LIDOCAINE 2% 100MG/5ML SDV (FOR ANES.) As Ordered ONE (08:18)
[2022-04-21] MEDS ORDERED: MIDAZOLAM INJ 2MG/2ML VIAL (J2250 PER 1MG) As Ordered ONE (08:18)
[2022-04-21] MEDS ORDERED: propofoL 200 MG/20 ML VIAL As Ordered ONE (08:18)
[2022-04-21] MEDS ORDERED: fentaNYL 100 MCG/2 ML INJECTION As Ordered ONE (08:19)
[2022-04-21] MEDS ORDERED: LR 1,000 ML IV SCH (08:25)
[2022-04-21] MEDS ORDERED: ceFAZolin 2 GM/D5W 50 ML IV BAG (J0690 PER 500MG) As Ordered ONE (09:49)
[2022-04-21] MEDS ORDERED: fentaNYL 100 MCG/2 ML INJECTION IV PRN (10:10)
[2022-04-21] MEDS ORDERED: ONDANSETRON 4MG 2ML VIAL IV PRN (10:10)
[2022-04-21] MEDS ORDERED: oxyCODONE 5MG TAB PO PRN (10:10)
[2022-04-21] MEDS ORDERED: ePHEDrine SULFATE 25 MG/5 ML(5MG/ML) SYRINGE As Ordered ONE (10:19)
[2022-04-21] MEDS ORDERED: ONDANSETRON 4MG 2ML VIAL As Ordered ONE (10:23)
[2022-04-21 12:05] VITALS: BP 136/67
== END 2022-04-21 12:05 | disposition home or self-care (01) ==
LOC: M SDC 07:38
PROVIDERS: ATTEND Orthopaedic Surgery Hand Surgery
DX: S42.471A Displaced transcondylar fracture of right humerus, initial encounter for closed fracture (principal); X58.XXXA Exposure to other specified factors, initial encounter; Y92.89 Other specified places as the place of occurrence of the external cause; Y93.9 Activity, unspecified; Y99.9 Unspecified external cause status; F03.90 Unspecified dementia, unspecified severity, without behavioral disturbance, psychotic disturbance, mood disturbance, and anxiety; J45.909 Unspecified asthma, uncomplicated; Z79.82 Long term (current) use of aspirin; Z79.899 Other long term (current) drug therapy; F17.210 Nicotine dependence, cigarettes, uncomplicated
CPT/HCPCS: 24505; 76000; J0690; J2250; J2405; J3010

== ENCOUNTER → 2022-04-30 | Outpatient (CLI) | payer MEDICARE | LOC: M SOG 08:14 | PROVIDERS: ATTEND Orthopaedic Surgery Hand Surgery | DX: S42.351D Displaced comminuted fracture of shaft of humerus, right arm, subsequent encounter for fracture with routine healing (principal) ==

== ENCOUNTER → 2022-05-13 | Outpatient (CLI) | payer MEDICARE | LOC: M SOG 08:02 | PROVIDERS: ATTEND Orthopaedic Surgery Hand Surgery | DX: S42.351D Displaced comminuted fracture of shaft of humerus, right arm, subsequent encounter for fracture with routine healing (principal) ==

== ENCOUNTER → 2022-05-24 | Outpatient (CLI) | payer MEDICARE | LOC: M SOG 11:23 | PROVIDERS: ATTEND Physician Assistant | DX: S42.351D Displaced comminuted fracture of shaft of humerus, right arm, subsequent encounter for fracture with routine healing (principal); W18.30XD Fall on same level, unspecified, subsequent encounter ==

== ENCOUNTER → 2022-06-14 | Outpatient (CLI) | payer MEDICARE | LOC: M SOG 08:35 | PROVIDERS: ATTEND Orthopaedic Surgery Hand Surgery | DX: S42.351D Displaced comminuted fracture of shaft of humerus, right arm, subsequent encounter for fracture with routine healing (principal); W18.30XD Fall on same level, unspecified, subsequent encounter ==

== ENCOUNTER → 2022-06-15 | Outpatient (CLI) | payer MEDICARE | LOC: M SOG 07:57 | PROVIDERS: ATTEND Orthopaedic Surgery Hand Surgery | DX: S42.351D Displaced comminuted fracture of shaft of humerus, right arm, subsequent encounter for fracture with routine healing (principal) ==

== ENCOUNTER 2022-07-10 11:21 | Emergency (ER) | payer MEDICARE ==
[2022-07-10 16:29] VITALS: BP 142/78
== END 2022-07-10 16:35 | disposition home or self-care (01) ==
LOC: M ED 11:21
DX: S93.401A Sprain of unspecified ligament of right ankle, initial encounter (principal); M25.471 Effusion, right ankle; F03.90 Unspecified dementia, unspecified severity, without behavioral disturbance, psychotic disturbance, mood disturbance, and anxiety; Z79.82 Long term (current) use of aspirin; Z79.899 Other long term (current) drug therapy

== ENCOUNTER → 2022-09-09 | Outpatient (CLI) | payer MEDICARE | LOC: M SOG 08:42 | PROVIDERS: ATTEND Physician Assistant | DX: S42.351D Displaced comminuted fracture of shaft of humerus, right arm, subsequent encounter for fracture with routine healing (principal) ==

== ENCOUNTER → 2024-03-21 | Outpatient (REF) | payer MEDICARE, MEDICAID | LOC: M SFHCWAGY 17:00 | PROVIDERS: ATTEND Nurse Practitioner Family | DX: N39.0 Urinary tract infection, site not specified (principal) ==

== ENCOUNTER → 2024-08-30 | Outpatient (REF) | payer MEDICARE, MEDICAID | LOC: M PLALAB 08:38 | PROVIDERS: ATTEND Nurse Practitioner Family | DX: R30.0 Dysuria (principal) ==

== ENCOUNTER → 2025-01-30 | Outpatient (REF) | payer MEDICARE, MEDICAID ==
[~2025-01-30] MED LIST changes: -DEPA250T32 PO; +DIVA-65 PO
[2025-01-30 18:14] LABS: APPEARANCE, URINE HAZY (CLEAR); BACTERIA, URINE AUTO NEGATIVE (NEGATIVE); BILIRUBIN, URINE AUTO NEGATIVE (NEGATIVE); BLOOD, URINE BLOOD NEGATIVE (NEGATIVE); GLUCOSE, URINE (UA) AUTO NEGATIVE (NEGATIVE); KETONE, URINE AUTO NEGATIVE (NEGATIVE); LEUKOCYTE ESTERASE, URINE AUTO NEGATIVE (NEGATIVE); NITRITE, URINE AUTO NEGATIVE (NEGATIVE); PROTEIN, URINE AUTO NEGATIVE (NEGATIVE); RBC, URINE AUTO 1 /HPF (0-3); SPECIFIC GRAVITY URINE AUTO 1.017 (1.002-1.035); SQUAMOUS EPITHELIAL CELL UR AU 7 /HPF (0-6); UROBILINOGEN, URINE AUTO 0.2 mg/dL (0.0-2.0); WBC, URINE AUTO 2 /HPF (0-3)
== END ==
LOC: M SFHCADAM 16:50
PROVIDERS: ATTEND Physician Assistant
DX: R35.0 Frequency of micturition (principal)

== ENCOUNTER 2025-04-12 08:41 | Observation (INO) | payer MEDICARE, MEDICAID ==
[2025-04-12] MEDS ORDERED: QUEtiapine FUMARATE 50MG TAB PO SCH (09:00)
[2025-04-12] MEDS ORDERED: QUET50TA4 PO (09:08)
[2025-04-12 09:42] LABS: KETONE, URINE AUTO RFX NEGATIVE (NEGATIVE); LEUKOCYTE ESTERASE UR AUTO RFX NEGATIVE (NEGATIVE); NITRITE, URINE AUTO RFX NEGATIVE (NEGATIVE); RBC, URINE AUTO RFX 1 /HPF (0-3); SQUAM EPITHELIAL CELL UR AURFX 0 /HPF (0-6); WBC, URINE AUTO RFX 3 /HPF (0-3)
[2025-04-12 09:44] LABS: BASO # 0.0 10^3/uL (0.0-0.2); BASO % 0.4 % (0.0-1.0); EOS # 0.2 10^3/uL (0.0-0.5); EOS % 2.7 % (0.0-3.0); LYMPH # 0.9 10^3/uL (1.5-5.0); LYMPH % 12.3 % (24.0-44.0); MONO # 0.4 10^3/uL (0.0-0.8); MONO % 5.9 % (2.0-8.0); NEUTROPHILS # 5.5 10^3/uL (1.5-8.5); NEUTROPHILS % 78.4 % (36.0-66.0); PLATELET COUNT, AUTOMATED 249 10^3/uL (150-450)
[2025-04-12 10:10] LABS: CALCIUM LEVEL 9.5 MG/DL (8.3-10.6); CARBON DIOXIDE LEVEL 24.0 MMOL/L (20-31); CHLORIDE LEVEL 106.0 MMOL/L (98-107); CREATININE FOR GFR 0.96 MG/DL (0.55-1.30); GLOMERULAR FILTRATION RATE 58.7 (>32); POTASSIUM SERUM 4.7 MMOL/L (3.5-5.1); SODIUM LEVEL 142.0 MMOL/L (136-145)
[2025-04-12] MEDS ORDERED: HOME MED LIST COMPLETE! XX SCH (11:20)
[2025-04-12] MEDS ORDERED: MOM 30 ML SUSPENSION UDC PO PRN (12:50)
[2025-04-12 13:45] LABS: INR 1.01
[2025-04-12 14:59] VITALS: BP 172/87; TEMP 97.2; O2SAT 98
[2025-04-12 15:36] LABS: VITAMIN B12 LEVEL 308.0 PG/ML (211-911)
[2025-04-12] MEDS: OLANZapine INTRAMUSCULAR 10MG VIAL IM PRN (16:07)
[2025-04-12 20:00] VITALS: BP 128/68; TEMP 97.5; O2SAT 95
[2025-04-12] MEDS: OLANZapine 5 MG TAB PO SCH (21:24)
[2025-04-12] MEDS: DOCUSATE SODIUM 100 MG CAPSULE PO SCH (21:24)
[2025-04-13] MEDS: ACETAMINOPHEN 325 MG TAB PO PRN (09:10)
[2025-04-13] MEDS: ENOXAPARIN 30 MG/0.3 ML SYRINGE (J1650 PER 10MG) SC SCH (09:10)
[2025-04-13 13:00] VITALS: BP 154/92; TEMP 98.1; O2SAT 85
[2025-04-13 13:06] VITALS: O2SAT 99
[2025-04-13] MEDS: FLUZONE HIGH DOSE (65+) 0.5 ML SYRINGE (25-26) IM.IMMUN ONE (15:12)
[2025-04-13] MEDS: OLANZapine 5 MG TAB PO PRN (15:16)
[2025-04-13] MEDS ORDERED: HALOPERIDOL LACTATE 5 MG/ML VIAL IM ONE (18:25)
[2025-04-13] MEDS: HALOPERIDOL LACTATE 5 MG/ML VIAL IM PRN (18:51)
[2025-04-13 20:00] VITALS: BP 152/89; TEMP 97.3; O2SAT 94
[2025-04-14 12:04] VITALS: BP 147/91; TEMP 97.7; O2SAT 95
[2025-04-14 20:08] VITALS: BP 160/76; TEMP 97; O2SAT 97
[2025-04-15] MEDS: OLANZapine 5 MG TAB PO SCH (06:46)
[2025-04-15 08:22] VITALS: BP 159/81; TEMP 97; O2SAT 99
[2025-04-18] MEDS: DIVALPROEX SPRINKLE 125 MG CAP PO SCH (21:00)
[2025-04-18] MEDS: OLANZapine 5 MG TAB PO SCH (21:00)
[2025-04-19 09:02] VITALS: BP 107/57; TEMP 97.6; O2SAT 97
[2025-04-20 05:11] VITALS: BP 136/82; TEMP 97.9; O2SAT 96
[2025-04-21 03:43] VITALS: BP 145/91; TEMP 97.3
[2025-04-23 03:52] VITALS: BP 128/70; TEMP 97.3; O2SAT 94
[2025-04-23] MEDS: OLANZapine 5 MG TAB PO SCH (20:45)
[2025-04-24] MEDS ORDERED: ATROPINE SULFATE 1% OPHTH SOLN 2 ML BTL SL PRN (15:30)
[2025-04-24] MEDS ORDERED: POLYVINYL ALCOHOL OPHTH SOLN 15ML (LIQUITEARS) OU PRN (15:30)
[2025-04-24] MEDS ORDERED: HYOSCYAMINE SULFATE 0.125 MG SUBL TABLET SL PRN (15:30)
[2025-04-24] MEDS ORDERED: ONDANSETRON 4MG ORAL DISINTEGRATING TAB PO PRN (15:30)
[2025-04-24] MEDS ORDERED: SALIVA SUBSTITUTE BTL MT PRN (15:30)
[2025-04-24] MEDS ORDERED: MIRALAX *UNIT DOSE* 17 GM PACKET PO PRN (15:30)
[2025-04-24] MEDS ORDERED: SENNA 8.6 MG TAB PO PRN (15:30)
[2025-04-24] MEDS: LORazepam 1 MG TAB PO SCH (16:02)
[2025-04-24] MEDS: MORPHINE 10 MG/0.5 ML ORAL CONCENTRATE SOLUTION U/D SL SCH (17:30)
[2025-04-24] MEDS: OLANZapine ORAL DISINTEGRATING TAB 5MG PO SCH (21:54)
[2025-04-26] MEDS: MORPHINE 10 MG/0.5 ML ORAL CONCENTRATE SOLUTION U/D SL PRN ×2 (10:49→12:05)
[2025-04-26] MEDS: MORPHINE 10 MG/0.5 ML ORAL CONCENTRATE SOLUTION U/D SL SCH (13:00)
== END 2025-04-29 05:26 | disposition expired ==
LOC: M ED 08:41 → EDBD 08:41 → INTOOBSV 12:47 → M ED INP 12:47 → M MSPAV 14:56
PROVIDERS: ADMIT Internal Medicine; ATTEND Internal Medicine
DX: F03.918 Unspecified dementia, unspecified severity, with other behavioral disturbance (principal); Z66 Do not resuscitate; E55.9 Vitamin D deficiency, unspecified; I87.2 Venous insufficiency (chronic) (peripheral); I73.9 Peripheral vascular disease, unspecified; I08.0 Rheumatic disorders of both mitral and aortic valves; I10 Essential (primary) hypertension; N81.10 Cystocele, unspecified; G40.909 Epilepsy, unspecified, not intractable, without status epilepticus; Z90.79 Acquired absence of other genital organ(s); Z90.49 Acquired absence of other specified parts of digestive tract; Z87.891 Personal history of nicotine dependence; Z79.899 Other long term (current) drug therapy; Z98.41 Cataract extraction status, right eye; Z98.42 Cataract extraction status, left eye; Z51.5 Encounter for palliative care; M25.562 Pain in left knee
CPT/HCPCS: 36415; 51701; 71045; 80048; 81001; 82607; 85025; 85610; 85730; 87486; 87581; 87633; 87798; 96374; 96375; 96376; 97161; 97165; 97530; 99285; G0378; J1630; J1650; J2359